=== PATIENT | male | born 1965 | race Caucasian/White ===

== ENCOUNTER 2017-11-14 13:31 | Observation (INO) | payer BC ==
[~2017-11-14] VITALS: Ht 180.3 cm; Wt 95.6 kg
[~2017-11-14 13:31] MED LIST: PANT20TA3 PO
[2017-11-14] MEDS ORDERED: LACTATED RINGERS 1,000 ML IV SCH (13:59)
[2017-11-14] MEDS ORDERED: PLEASE ENTER HEIGHT AND WEIGHT MC SCH (14:30)
[2017-11-14] MEDS ORDERED: EPINEPHRINE 1 MG/ML, 1ML ONE (14:49)
[2017-11-14] MEDS ORDERED: BUPIVACAINE/PF 0.25% ONE (14:49)
[2017-11-14 14:51] LABS: BASOPHILS # (AUTO) 0.03 x10^3/uL (0-0.1); BASOPHILS % (AUTO) 1 % (0-1); EOSINOPHILS # (AUTO) 0.08 x10^3/uL (0-0.4); EOSINOPHILS % (AUTO) 1 % (1-7); LYMPHOCYTES # (AUTO) 1.53 x10^3/uL (1-3.4); LYMPHOCYTES % (AUTO) 27 % (22-44); MD NO; MEAN CORPUSCULAR HEMOGLOBIN 30.6 pg (27.5-34.5); MEAN CORPUSCULAR HGB CONC 33.7 g/dL (33.2-36.2); MEAN CORPUSCULAR VOLUME 90.8 fL (81-97); MEAN PLATELET VOLUME 10.5 fL (7.4-10.4); MONOCYTES # (AUTO) 0.42 x10^3/uL (0.2-0.8); MONOCYTES % (AUTO) 7 % (2-9); NEUTROPHILS # (AUTO) 3.59 x10^3/uL (1.8-6.8); NEUTROPHILS % (AUTO) 64 % (42-75); PLATELET COUNT 157 x10^3/uL (130-400); RED BLOOD COUNT 5.25 x10^6/uL (4.38-5.82); RED CELL DISTRIBUTION WIDTH 13.2 % (9.4-14.8)
[2017-11-14] MEDS ORDERED: FENTANYL PF 250 MCG/5ML ONE (15:02)
[2017-11-14 15:03] LABS: ANION GAP 7 mmol/L (5-15); CHLORIDE 107 mmol/L (98-107); CREATININE 1.05 mg/dL (0.7-1.3)
[2017-11-14] MEDS ORDERED: MIDAZOLAM 1 MG/ML, 2ML ONE (15:05)
[2017-11-14] MEDS ORDERED: hydrALAzine 20 MG/ML, 1ML IV PRN (16:30)
[2017-11-14] MEDS ORDERED: ACETAMINOPHEN 325 MG TABLET PO PRN (16:30)
[2017-11-14] MEDS ORDERED: HYDROmorphone 1 MG/ML, 1ML IV PRN (16:30)
[2017-11-14] MEDS ORDERED: HALOPERIDOL 5 MG/ML IV PRN (16:30)
[2017-11-14] MEDS ORDERED: morphine SULFATE 10 MG/ML, 1ML IVPush PRN (16:30)
[2017-11-14] MEDS ORDERED: OXYcodone 5 MG/5 ML ORAL.SOL UDC PO PRN (16:30)
[2017-11-14] MEDS ORDERED: HYDROcodone/APAP 5/325 TABLET PO PRN ×2 (16:30→22:00)
[2017-11-14] MEDS ORDERED: LABETALOL 5MG/ML, 20ML IV PRN (16:30)
[2017-11-14] MEDS ORDERED: ONDANSETRON 2MG/ML, 2ML IVPush PRN ×2 (16:30→22:00)
[2017-11-14] MEDS ORDERED: OXYcodone 5 MG/5 ML ORAL.SOL UDC ONE (16:52)
[2017-11-14] MEDS ORDERED: FENTANYL PF 100 MCG/2ML ONE (16:52)
[2017-11-14] MEDS ORDERED: ACETAMINOPHEN 650 MG/20.3 ML UDC ONE (16:52)
[2017-11-14] MEDS: FENTANYL PF 100 MCG/2ML IV PRN ×2 (16:57→17:10)
[2017-11-14 20:11] VITALS: BP 126/75
[2017-11-14 20:40] VITALS: BP 114/64
[2017-11-14] MEDS ORDERED: PANTOPROZOLE 40MG TABLET PO PRN (22:00)
[2017-11-14] MEDS ORDERED: ONDANSETRON 4 MG TABLET PO PRN (22:00)
[2017-11-15 00:13] VITALS: BP 111/70
[2017-11-15] MEDS: KETOROLAC 30 MG/1 ML IVPush PRN ×3 (01:28→17:35)
[2017-11-15 08:18] VITALS: BP 119/73
[2017-11-15] MEDS ORDERED: OMNIPAQUE 350 MG/ML, 100ML BOTTLE ONE (10:55)
[2017-11-15 12:26] VITALS: BP 114/66
[2017-11-15] MEDS ORDERED: GLYCOPYRROLATE 0.2MG/1ML, 5ML ONE (13:11)
[2017-11-15] MEDS ORDERED: ONDANSETRON 2MG/ML, 2ML ONE (13:11)
[2017-11-15] MEDS ORDERED: SUCCINYLCHOLINE 20 MG/ML, 10ML ONE (13:11)
[2017-11-15] MEDS ORDERED: PROPOFOL 10 MG/ML, 20ML ONE (13:11)
[2017-11-15] MEDS ORDERED: NEOSTIGMINE 1 MG/ML, 10ML ONE (13:11)
[2017-11-15] MEDS ORDERED: DEXAMETHASONE 4 MG/ML, 1ML ONE (13:11)
[2017-11-15] MEDS ORDERED: KETOROLAC 30 MG/1 ML ONE (13:11)
[2017-11-15] MEDS ORDERED: CEFAZOLIN 1,000 MG ONE (13:11)
[2017-11-15] MEDS ORDERED: ROCURONIUM 10MG/ML,5ML ONE (13:11)
== END 2017-11-15 20:00 | disposition home or self-care (01) ==
LOC: OUT 13:31 → 4NOR 17:57 → OUT 21:47 → 4NOR 21:48
PROVIDERS: ADMIT Surgery; ATTEND Surgery
DX: K42.9 Umbilical hernia without obstruction or gangrene (principal); K40.90 Unilateral inguinal hernia, without obstruction or gangrene, not specified as recurrent; Z99.81 Dependence on supplemental oxygen; K21.9 Gastro-esophageal reflux disease without esophagitis
CPT/HCPCS: 36415; 49652; 71275; 80048; 85025; 96374; 96376; C1781; G0378; J0171; J0330; J0690; J1100; J1885; J2250; J2405; J2704; J2710; J3010; J3490; J7120; Q9967